=== PATIENT | female | born 1985 | race Asian ===

== ENCOUNTER 2024-04-23 10:01 | Emergency (ER) | payer OTHER ==
[2024-04-23 10:19] VITALS: BP 147/76; PULSE 95; RESP 20; TEMP 98.4; BMI 21.7
[2024-04-23 12:29] LABS: EPI CELLS 16 /uL (0-25.1); HYALINE CASTS 1 /uL (0-3.1); PH,URINE 5.5 (5.0-8.0); URINE APPEARANCE CLEAR; URINE BACTERIA 275 /uL (0-1359); URINE BILIRUBIN NEGATIVE (NEGATIVE); URINE COLOR DK YELLOW; URINE GLUCOSE (UA) NEGATIVE (NEGATIVE); URINE KETONE 3+ (NEGATIVE); URINE LEUK ESTERASE 1+ (NEGATIVE); URINE NITRITE NEGATIVE (NEGATIVE); URINE PROTEIN TRACE (NEGATIVE); URINE UROBILINOGEN 0.2 mg/dL (0.2-1.0); URINE WBC 11 /uL (0-25.8)
[2024-04-23 12:35] LABS: HCG,QUALITATIVE URINE Negative
[2024-04-23 12:42] LABS: URINE RBC 48.6 /uL (0-23.9)
== END 2024-04-23 13:03 | disposition home or self-care (01) ==
LOC: JER 10:01
DX: R10.31 Right lower quadrant pain (principal); R19.7 Diarrhea, unspecified
CPT/HCPCS: 81003; 84703; 87086; 99283-25